=== PATIENT | male | born 1980 | race Caucasian/White ===

== ENCOUNTER 2023-11-29 14:42 | Observation (INO) ==
[2023-11-29] MEDS: Morphine 4 MG/ML VIAL (1 ml) IV ONE ×2 (15:10→18:44)
[2023-11-29] MEDS: NS 0.9% 1000 ml BAG 1,000 ML IV ONE ×2 (15:10→16:11)
[2023-11-29] MEDS: Ondansetron 4 mg VIAL 2 MG/ML 2 ml VIAL IV ONE (15:11)
[2023-11-29 15:19] LABS: ABS Lymphocytes 1.4 10^3/uL (1.0-4.8); ABS Neutrophils 9.6 10^3/uL (1.5-7.6); ABS Nucleated RBC 0.03 10^3/ul; Hematocrit 49.4 % (38-53); Hemoglobin 16.4 g/dL (13.2-16.3); Lymphocyte % 11.9 %; Mean Corpuscular Hemoglobin 27.1 pg (27-33); Mean Corpuscular Hgb Conc 33.1 g/dL (31-36); Mean Corpuscular Volume 81.7 fL (80-97); Mean Platelet Volume 7.9 fL (7.5-11.2); Nucleated Red Blood Cells % 0.2 %/100WBC (0.0-0.8); Platelet Count 282 10^3/uL (150-450); Red Blood Count 6.05 10^6/uL (4.06-5.63); Red Cell Distribution Width 14.3 % (12-17); White Blood Count 12.1 10^3/uL (3.6-10.2)
[2023-11-29 16:05] LABS: ALT 15 U/L (7-52); Albumin/Globulin Ratio 1.6 (1-3); Alkaline Phosphatase 97 U/L (35-149); Anion Gap 14 mmol/L (2-16); Blood Urea Nitrogen 22 mg/dL (6-24); C Reactive Protein 10.48 mg/L (<8.01); CO2 Carbon Dioxide 21 mmol/L (22-32); Calcium 10.5 mg/dL (8.6-10.3); Chloride 101 mmol/L (101-111); Globulin 3.1 g/dL (2-4); Glucose 130 mg/dL (70-100); Lipase 18 U/L (11.0-82.0); Sodium 136 mmol/L (135-145); Total Bilirubin 2.3 mg/dL (0.2-1.0); Total Protein 8.1 g/dL (6.4-8.9); eGFR CKD-EPI 64.4 (>60)
[2023-11-29] MEDS: Iohexol 300 (CONTRAST) 10 ML SDV IV ONE (16:27)
[2023-11-29] MEDS: Piperacillin/Tazobac 3.375 BAG 3.375 GM/100 ML BAG IV ONE (16:59)
[2023-11-29 17:20] LABS: Potassium Redraw 5.3 mmol/L (3.5-5.0)
[2023-11-29 19:47] LABS: Urine Appearance Clear; Urine Bacteria Absent /HPF (Absent); Urine Bilirubin Negative (Negative); Urine Blood Negative (Negative); Urine Color Yellow; Urine Glucose Negative (Negative); Urine Ketones 2+ (Negative); Urine Nitrite Negative (Negative); Urine Protein 1+ (>=30 mg/dL) (Negative); Urine Red Blood Cell 1+(3-5/hpf) /HPF (0-Trace); Urine Specific Gravity >1.050 (1.002-1.030); Urine Urobilinogen Negative (Negative); Urine White Blood Cell Trace(0-5/hpf) /HPF (0-Trace); Urine pH 6.5 (5.0-8.0)
[2023-11-29] MEDS: Morphine 2 MG/ML SYRINGE IV PRN (23:54)
[2023-11-30 06:14] VITALS: BP 95/63
[2023-11-30 06:48] LABS: ABS Eosinophils 0.1 10^3/uL (0.0-0.5); ABS Lymphocytes 1.9 10^3/uL (1.0-4.8); ABS Monocytes 1.2 10^3/uL (0.0-1.1); ABS Neutrophils 4.6 10^3/uL (1.5-7.6); ABS Nucleated RBC 0.01 10^3/ul; Eosinophil % 1.1 %; Hematocrit 41.9 % (38-53); Hemoglobin 14.2 g/dL (13.2-16.3); Lymphocyte % 24.6 %; Mean Corpuscular Hemoglobin 27.5 pg (27-33); Mean Corpuscular Hgb Conc 33.8 g/dL (31-36); Mean Corpuscular Volume 81.4 fL (80-97); Nucleated Red Blood Cells % 0.1 %/100WBC (0.0-0.8); Platelet Count 193 10^3/uL (150-450); Red Blood Count 5.15 10^6/uL (4.06-5.63); Red Cell Distribution Width 14.1 % (12-17); White Blood Count 7.9 10^3/uL (3.6-10.2)
[2023-11-30 07:08] LABS: Albumin 3.6 g/dL (3.2-5.2); Albumin/Globulin Ratio 1.6 (1-3); Calcium 8.5 mg/dL (8.6-10.3); Creatinine, Serum 1.19 mg/dL (0.67-1.17); Globulin 2.3 g/dL (2-4); Potassium 4.3 mmol/L (3.5-5.0); Total Bilirubin 2.1 mg/dL (0.2-1.0); Total Protein 5.9 g/dL (6.4-8.9); eGFR CKD-EPI 78.2 (>60)
== END 2023-11-30 08:51 | disposition home or self-care (01) ==
LOC: EDHOLD 14:42 → ED 14:42 → SUATTDRO 20:05 → MEDTELE 22:44
PROVIDERS: ADMIT Internal Medicine; ATTEND Student in an Organized Health Care Education/Training Program